=== PATIENT | female | born 1995 | race Asian ===

== ENCOUNTER 2022-02-14 05:40 | Outpatient (CLI) | payer OTHER ==
[~2022-02-14] VITALS: Ht 160 cm; Wt 75.9 kg
--- NOTE | 2022-02-14 06:05 | NUR ---
pt ambulatory onto to lr3 with spouse. changed into clean gown. FHR monitor/TOCO applied. Vital signs WNL. Afebrile. Pt denies any vaginal bleeding, leaking of fluid, or decreased movement. Pt came in complaining of contractions. Pt oriented to room. Plan of care discussed. Pt verbalizes understanding. Call light within reach.
[2022-02-14] MEDS ORDERED: PROFERRIN ES12 MG (06:22)
[2022-02-14] MEDS ORDERED: PRENATAL TABLET PO (06:22)
[2022-02-14] MEDS ORDERED: SENOKOT8.6 MG PO (06:23)
[2022-02-14 06:30] VITALS: BP 106/63; PULSE 81; TEMP 97.7
--- NOTE | 2022-02-14 07:35 | NUR ---
discomforts of and active labor vs false labor discussed. pt verbalizes understanding. ambulatory off unit in stable condition.
[2022-02-15] MEDS ORDERED: MOTRIN 800800 MG/TAB PO (13:13)
== END 2022-02-14 07:35 | disposition home or self-care (01) ==
LOC: LDRO 05:40
DX: O47.1 False labor at or after 37 completed weeks of gestation (principal); Z3A.39 39 weeks gestation of pregnancy

== ENCOUNTER 2022-02-15 00:39 | Inpatient (IN) | payer OTHER ==
[~2022-02-15] VITALS: Ht 160 cm; Wt 75.9 kg
[2022-02-15] VITALS (39 sets, daily range): BP systolic 95–121; BP diastolic 51–80; PULSE 83–136; TEMP 97.2–98.1
[~2022-02-15 00:39] MED LIST: PRENATAL TABLET PO; PROFERRIN ES12 MG; SENOKOT8.6 MG PO
[2022-02-15 01:56] LABS: BASO % 0.1 % (0.0-2.0); EOS % 0.2 % (0.0-4.0); GRAN # 8.2 K/mm3 (1.4-6.5); GRAN % 78.8 % (42.2-75.2); LYMPH # 1.5 K/mm3 (1.2-3.4); LYMPH % 14.4 % (20.0-51.0); MEAN CELL VOLUME 89 fl (80.0-100.0); MEAN CORPUSCULAR HEMOGLOBIN 30 pg (27-31); MEAN CORPUSCULAR HGB CONC 34 g/dl (33.0-37.0); MEAN PLATELET VOLUME 10.3 fl (7.4-10.4); MONO # 0.6 K/mm3 (0.1-0.6); MONO % 5.9 % (1.7-9.3); PLATELET COUNT 199 K/mm3 (130-400); RED BLOOD COUNT 3.95 M/mm3 (4.10-5.30); REDCELL DISTRIBUTION WIDTH-CV 14.6 % (11.5-14.5)
--- NOTE | 2022-02-15 02:00 | NUR ---
tense with contractions. attentive at bedside.
[2022-02-15 02:02] LABS: HEMATOCRIT 35.2 % (37.0-47.0)
--- NOTE | 2022-02-15 02:22 | NUR ---
Tunde [employer]ADER into room for epidural placement. Pt moved to sit on edge of bed. 200cc emesis. See anesthesia record for epidural info.
--- NOTE | 2022-02-15 07:15 | NUR ---
0706- FHR monitor noted to be tracing in the 60's, this RN at bedside, can audibly hear FHR in the 120's, US adjusted. O2 sat monitor on and tracing maternal HR on strip.
--- NOTE | 2022-02-15 07:30 | NUR ---
FHR switching back and forth between 120's and 60's, adjusted by this RN, can audibly hear heart rate is in 120's. Will continue to adjust and monitor.
--- NOTE | 2022-02-15 09:00 | NUR ---
0845- SVE by this RN, unchanged from previous exam. Pt assisted to LL, side-lying hip release, this RN remains at bedside, stabalizing Pt. 0857- Pt assisted to same position RL. Tolerated well. 0905- Dr Torres at bedside. SVE, complete. Pt and room prepped for pushing. remains on unit. 0917- Pt begins pushing with UCs. This RN remains at bedside.
--- NOTE | 2022-02-15 09:45 | NUR ---
0931- Dr Torres at bedside to evaluate pushing, no new orders at this time. Pt continues pushing with UCs.
--- NOTE | 2022-02-15 10:32 | NUR ---
1015- Dr Torres at bedside evaluating pushing, remains at bedside with PT. 1030- Pt and room prepped for delivery. Gilbert, nursery RN at bedside. 1032- of viable female infant, to mother's abd, tended to by Nursery. Cord clamped and cut. Cord blood obtained. 1035- Spontaneous delivery of placenta, Pitocin started at 333ml/hr. Fundus massaged to firm by MD and then this RN. See MD delivery note. After repair, pericare completed, ice pack to perineum, chux changed. Pt repositioned to high fowlers. Infant placed [id number] with mother.
--- NOTE | 2022-02-15 11:05 | NUR ---
1105- Pt complains of being dizzy, breast feeding at this time. Pt hands baby off to . Head of bed lowered. Fundus firm, bleeding WNL. Dr Torres at nurses station, updated on Pt status, no further orders at this time.
--- NOTE | 2022-02-15 13:10 | NUR ---
1310- This RN updates Dr Torres who is at nurses station. Pt continues to complain of being dizzy when sitting up. Is eating lunch now. Fundus firm, bleeding WNL. MD to bedside, looks at perineum to make sure no hematoma has formed, none noted. MD gives verbal order for stat H&H.
[2022-02-15] MEDS ORDERED: MOTRIN 800800 MG/TAB PO (13:13)
[2022-02-15 13:30] LABS: HEMOGLOBIN 10.5 g/dl (12.5-16.0)
--- NOTE | 2022-02-15 13:30 | NUR ---
1330- Pt voids on bedpan, 625mls. Pericare performed. Underwear and peripad on. Gown changed. Pt transfers from bed to wheelchair with standby assist x1. Pt denies dizziness. Pt taken to PP room. Oriented to room. Pt encouraged to call out when she needs to void for assistance, Pt verablizes understanding. Call light at bedside.
--- NOTE | 2022-02-15 17:19 | NUR ---
Note computer not working in room, unable to scan senokot, but administered at this time.
[2022-02-16 01:00] VITALS: BP 102/56; PULSE 91; TEMP 97.9
[2022-02-16 08:00] VITALS: BP 95/60; PULSE 95; TEMP 97.8
--- NOTE | 2022-02-16 09:50 | NUR ---
Initial visit; Parents thanked Floral Artist for offering congratulations for the of their daughter. Floral Artist thanked family for choosing [facility].
== END 2022-02-16 15:00 | disposition home or self-care (01) | DRG 807 ==
LOC: LDRO 00:39 → LDR 01:10 → OB 01:10
PROVIDERS: Student in an Organized Health Care Education/Training Program; ADMIT Obstetrics & Gynecology
PROC: 10E0XZZ Delivery of Products of Conception, External Approach (ICD-10-PCS; principal; 2022-02-15)
PROC: 0KQM0ZZ Repair Perineum Muscle, Open Approach (ICD-10-PCS; 2022-02-15)
PROC: 0UQMXZZ Repair Vulva, External Approach (ICD-10-PCS; 2022-02-15)
DX: O99.02 Anemia complicating childbirth (principal); Z37.0 Single live birth; D64.9 Anemia, unspecified; O70.1 Second degree perineal laceration during delivery; O62.2 Other uterine inertia; O64.0XX0 Obstructed labor due to incomplete rotation of fetal head, not applicable or unspecified; Z3A.39 39 weeks gestation of pregnancy
CPT/HCPCS: J2210; J2590; J7120